=== PATIENT | female | born 1970 | race Caucasian/White ===

== ENCOUNTER 2018-10-08 00:05 | Observation (INO) | payer SELFPAY ==
[2018-10-08] MEDS ORDERED: ASPIRIN 81 MG TABLET, CHEWABLE PO ONE (00:21)
--- NOTE | 2018-10-08 00:35 | ER Document Report ---
ED General - General Chief Complaint: Chest Pain Stated Complaint: CHEST PAINS, SHORT OF BREATH Time Seen by Provider: 10/08/18 00:25 Notes: 39-year-old female with a history of smoking visiting her grandbaby from [facility] presents with pain in her right shoulder and lower chest bilaterally right greater than left worse with deep breathing. This all started when she woke up at 7 AM but is worsened throughout the day where she cannot get a deep breath in. She denies changes in her chronic cough hemoptysis or leg swelling. She denies a cardiac history but does take blood pressure medication. She denies fever chills. TRAVEL OUTSIDE OF THE [place] IN LAST 30 DAYS: No - Related Data Allergies/Adverse Reactions: No Known Allergies Allergy (Unverified 10/08/18 00:48) Past Medical History - Social History Smoking Status: Current Every Day Smoker Smoking Education Provided: Yes - The patient ED visit today was directly related to their abuse of tobacco. Family History: None Review of Systems - Review of Systems Notes: REVIEW OF SYSTEMS GEN: Denies fever, chills, weight loss ENT: Denies sore throat, nasal discharge, ear pain EYES: Denies blurry vision, eye pain, discharge CV: Denies chest pain, palpitations, edema RESP: Cough shortness of breath GI: Denies abdominal pain, nausea, vomiting, diarrhea MSK: Denies joint pain/swelling, edema, SKIN: Denies rash, skin lesions LYMPH: Denies swollen glands/lymph nodes NEURO: Denies headache, focal weakness or numbness, dizziness PSYCH: Denies depression, suicidal or homicidal ideation PHYSICAL EXAMINATION General: No acute distress, well-nourished Head: Atraumatic, normocephalic ENT: Mouth normal, oropharynx moist, no exudates or tonsillar enlargement Eyes: Conjunctiva normal, pupils equal, lids normal Neck: No JVD, supple, no guarding CVS: , regular rhythm, no murmurs Resp: No resp distress, equal and normal breath sounds bilaterally GI: Nondistended, soft, no tenderness to palpation, no rebound or guarding Ext: No deformities, no edema, normal range of motion in upper and lower ext Back: No CVA or midline TTP Skin: No rash, warm Lymphatic: No lymphadeopathy noted Neuro: Awake, alert. Face symmetric. GCS 15. Physical Exam - Vital signs Vitals: Resp 27 H 11/07/18 00:20 Course - Re-evaluation Re-evalutation: 10/08/18 02:42 She presents with bilateral costal pleuritic chest pain and shortness of breath. She has multiple risk factors for pulmonary embolus. The pain is atypical for acute coronary syndrome and she has no history of heart disease. She also has a history of pancreatitis, which I found out much later. Initially repeat her EKG because I wondered if there was some mild ST elevation in the inferior leads, however on repeat this does not seem to be present in terms of criteria for STEMI and there is no reciprocal change. Patient underwent a complete workup including x-ray labs troponin and a CT for pulmonary embolus. These were all negative. She did receive nitro which helped her some, then got slightly nauseous and received fentanyl and Zofran. I reassessed her after this at 2:40 AM in the presence of her daughter, nurse, and she felt slightly better. At this time I do not believe she has an abdominal problem because a repeat abdominal exam is totally normal. I will do one more EKG to make sure it is not changing, and plan to admit for rule out ACS. She is from [place] and so will need to be stressed before discharge. 10/08/18 03:11 Patient negative. Discussed with hospitalist. He raised the possibility of pericarditis. In looking at her EKG there is some question of WI depression in some leads, and may be WI depression slightly in aVR. Patient still does not meet STEMI criteria but will be admitted to rule out acute coronary syndrome. - Vital Signs Vital signs: Temp Pulse Resp BP Pulse Ox 26 H 131/90 H 94 10/08/18 01:20 10/08/18 01:20 10/08/18 01:20 - Laboratory Result Diagrams: 10/08/18 00:42 10/08/18 00:42 Laboratory results interpreted by me: 10/08/18 00:42 MCV 98 H MCH 34.3 H RDW 14.9 H - Diagnostic Test Radiology reviewed: Image reviewed, Reports reviewed - EKG Interpretation by Me EKG shows normal: Sinus rhythm Rate: Tachycardia When compared to previous EKG there are: Previous EKG unavailable Discharge - Discharge Clinical Impression: Chest pain, unspecified Qualifiers: Chest pain type: chest pain on breathing Qualified Code(s): R07.1 - Chest pain on breathing Condition: Good Disposition: ADMITTED OBSERVATION Admitting Provider: Hospitalist Unit Admitted: Telemetry
[2018-10-08 00:53] LABS: ABSOLUTE BASOPHILS # (AUTO) 0.1 10^3/uL (0.0-0.2); ABSOLUTE EOSINOPHILS # (AUTO) 0.3 10^3/uL (0.0-0.6); ABSOLUTE LYMPHOCYTES (AUTO) 2.3 10^3/uL (0.5-4.7); ABSOLUTE MONOCYTES (AUTO) 1.2 10^3/uL (0.1-1.4); ABSOLUTE NEUT (AUTO) 6.1 10^3/uL (1.7-8.2); EOSINOPHILS % (AUTO) 2.7 % (0-6); HEMATOCRIT 42.7 % (36.0-47.0); HEMOGLOBIN 14.9 g/dL (12.0-15.5); LYMPHOCYTES % (AUTO) 23.1 % (13-45); MEAN CORPUSCULAR HEMOGLOBIN 34.3 pg (27.0-33.4); MEAN CORPUSCULAR HGB CONC 34.9 g/dL (32.0-36.0); MEAN CORPUSCULAR VOLUME 98 fl (80-97); MONOCYTES % (AUTO) 11.9 % (3-13); PLATELET COUNT 338 10^3/uL (150-450); RED BLOOD COUNT 4.35 10^6/uL (3.72-5.28); RED CELL DISTRIBUTION WIDTH 14.9 % (11.5-14.0); SEGMENTED NEUTROPHILS % (AUTO) 61.3 % (42-78); TOTAL CELLS COUNTED % (AUTO) 100 %
[2018-10-08 01:07] LABS: ALANINE AMINOTRANSFERASE 33 U/L (9-52); ALBUMIN 4.2 g/dL (3.5-5.0); ALKALINE PHOSPHATASE 93 U/L (38-126); ANION GAP 12 (5-19); ASPARTATE AMINO TRANSFERASE 31 U/L (14-36); BILIRUBIN,DIRECT 0.2 mg/dL (0.0-0.4); BILIRUBIN,TOTAL 0.4 mg/dL (0.2-1.3); BLOOD UREA NITROGEN 16 mg/dL (7-20); CALCIUM 9.7 mg/dL (8.4-10.2); CARBON DIOXIDE 23 mmol/L (22-30); CHLORIDE 105 mmol/L (98-107); GLUCOSE 104 mg/dL (75-110); POTASSIUM 4.6 mmol/L (3.6-5.0); SODIUM 140.2 mmol/L (137-145); TOTAL PROTEIN 7.6 g/dL (6.3-8.2)
[2018-10-08] MEDS: NITROGLYCERIN 0.4 MG/TAB 25 TAB/BOTTLE SL PRN ×2 (01:17→01:23)
--- NOTE | 2018-10-08 01:57 | RADIOLOGY REPORT (SQ) ---
CLINICAL HISTORY: cp COMPARISON: None. 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 Lungs are clear without consolidation, atelectasis, mass or edema. There is no pleural effusion. There is no pneumothorax. There are no acute osseous findings. IMPRESSION: Clear lungs.
[2018-10-08] MEDS ORDERED: ONDANSETRON HCL INJ/PF 4 MG/2 ML SDV IV ONE (02:17)
[2018-10-08] MEDS ORDERED: FENTANYL CITRATE INJ/PF 100 MCG/2 ML AMPUL IV ONE (02:18)
--- NOTE | 2018-10-08 02:19 | RADIOLOGY REPORT (SQ) ---
CLINICAL HISTORY: CP, tachy. smoker. COMPARISON: None. 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 MIPS reconstructions were generated. This exam was performed according to our departmental dose-optimization program, which includes automated exposure control, adjustment of the mA and/or kV according to patient size and/or use of iterative reconstruction technique. MIP images were generated. FINDINGS: Thoracic aorta is normal in course and caliber without aneurysm or dissection. Pulmonary arteries are adequately opacified without acute or chronic filling defects. The heart is normal in size. There is no pericardial effusion. Intrathoracic lymph nodes are not enlarged. There is no pleural effusion, pleural thickening or pneumothorax. Central airways are patent. There is moderate upper lung centrilobular emphysema. There are no acute abnormalities within the limited images of the upper abdomen. There are no acute osseous findings. No suspicious bony lesions. IMPRESSION: No aortic dissection or aneurysm. No pulmonary embolus. Emphysema without pneumonia.
[2018-10-08 02:46] LABS: LIPASE 107.4 U/L (23-300)
[2018-10-08] MEDS ORDERED: MAG HYDROX/AL HYDROX/SIMETH SUSP 30 ML UDCUP PO PRN (03:16)
[2018-10-08] MEDS ORDERED: NITROGLYCERIN 0.4 MG/TAB 25 TAB/BOTTLE SL PRN (03:16)
[2018-10-08] MEDS ORDERED: ONDANSETRON HCL INJ/PF 4 MG/2 ML SDV IV PRN (03:16)
[2018-10-08] MEDS ORDERED: LACTULOSE SYRUP 20 GM/30 ML UDCUP PO ONE (03:25)
[2018-10-08] MEDS ORDERED: NICOTINE 14 MG/24 HR PATCH.TD24 TD ONE (04:14)
[2018-10-08] MEDS ORDERED: NICOTINE 7 MG/24 HR PATCH.TD24 TD PRN (05:24)
--- NOTE | 2018-10-08 05:25 | PDOC H&P ---
History of Present Illness Admission Date/PCP: 10/08/18 03:20 Patient complains of: Chest pain History of Present Illness: ENRIQUE BARRETO is a 47 year old female with a past medical history of COPD and chronic bronchitis. Presenting with 18 hours of sharp left-sided chest pain 3 out of 5 intensity waxing and waning, worsened with deep breathing, alleviated by rest. She has recently traveled from [facility]. In the emergency room she has an unremarkable workup including CTA chest and she is referred to the hospitalist for admission. She denies previous episode, cardiac stress testing and is currently pain-free. Past Medical History Cardiac Medical History: Reports: Hypertension Pulmonary Medical History: Reports: Bronchitis, Chronic Obstructive Pulmonary Disease (COPD) Social History Information Source: Patient Lives with: Family Smoking Status: Current Every Day Smoker Frequency of Alcohol Use: None Drugs: None - Advance Directive Resuscitation Status: Full Code Family History Family History: Hypertension Parental Family History Reviewed: Yes Children Family History Reviewed: Yes Sibling(s) Family History Reviewed.: Yes Medication/Allergy Allergies/Adverse Reactions: No Known Allergies Allergy (Unverified 10/08/18 00:48) Review of Systems Constitutional: ABSENT: chills, fever(s), headache(s), weight gain, weight loss Eyes: ABSENT: visual disturbances Ears: ABSENT: hearing changes Cardiovascular: ABSENT: chest pain, dyspnea on exertion, edema, orthropnea, palpitations Respiratory: ABSENT: cough, hemoptysis Gastrointestinal: ABSENT: abdominal pain, constipation, diarrhea, hematemesis, hematochezia, nausea, vomiting Genitourinary: ABSENT: dysuria, hematuria Musculoskeletal: ABSENT: joint swelling Integumentary: ABSENT: rash, wounds Neurological: ABSENT: abnormal gait, abnormal speech, confusion, dizziness, focal weakness, syncope Psychiatric: ABSENT: anxiety, depression, homidical ideation, suicidal ideation Endocrine: ABSENT: cold intolerance, heat intolerance, polydipsia, polyuria Hematologic/Lymphatic: ABSENT: easy bleeding, easy bruising Physical Exam Vital Signs: Temp Pulse Resp BP Pulse Ox 22 H 123/85 98 10/08/18 04:35 10/08/18 03:00 10/08/18 04:54 Intake & Output 10/06/18 10/07/18 10/08/18 11:59 11:59 11:59 Weight 58.7 kg General appearance: PRESENT: no acute distress, well-developed, well-nourished Head exam: PRESENT: atraumatic, normocephalic Eye exam: PRESENT: conjunctiva pink, EOMI, PERRLA. ABSENT: scleral icterus Ear exam: PRESENT: normal external ear exam Mouth exam: PRESENT: moist, tongue midline Neck exam: ABSENT: carotid bruit, JVD, lymphadenopathy, thyromegaly Respiratory exam: PRESENT: clear to auscultation mirian. ABSENT: rales, rhonchi, wheezes Cardiovascular exam: PRESENT: RRR. ABSENT: diastolic murmur, rubs, systolic murmur Pulses: PRESENT: normal dorsalis pedis pul Vascular exam: PRESENT: normal capillary refill GI/Abdominal exam: PRESENT: normal bowel sounds, soft. ABSENT: distended, guarding, mass, organolmegaly, rebound, tenderness Rectal exam: PRESENT: deferred Extremities exam: PRESENT: full ROM. ABSENT: calf tenderness, clubbing, pedal edema Neurological exam: PRESENT: alert, awake, oriented to person, oriented to place , oriented to time, oriented to situation, CN II-XII grossly intact. ABSENT: motor sensory deficit Psychiatric exam: PRESENT: appropriate affect, normal mood. ABSENT: homicidal ideation, suicidal ideation Skin exam: PRESENT: dry, intact, warm. ABSENT: cyanosis, rash Results Impressions: Chest X-Ray 10/08/18 00:21 IMPRESSION: Clear lungs. Chest/Abdomen CTA 10/08/18 00:32 IMPRESSION: No aortic dissection or aneurysm. No pulmonary embolus. Emphysema without pneumonia. Assessment & Plan - Diagnosis (1) Chest pain, unspecified Qualifiers: Chest pain type: chest pain on breathing Qualified Code(s): R07.1 - Chest pain on breathing; R07.81 - Pleurodynia Is this a current diagnosis for this admission?: Yes Plan: Atypical chest pain though the patient's pain is atypical there are multiple risk factors for coronary artery disease and subsequently will observe and evaluation of acute coronary syndrome versus coronary artery disease with anginal equivalents. Cardiac monitoring blood pressure Q6 hours ,TSH, lipid profile, serial cardiac enzymes and cardiac stress test (2) Hypertension Is this a current diagnosis for this admission?: Yes Plan: Outpatient regiment with as needed MAYI inhibitor (3) Tobacco abuse Is this a current diagnosis for this admission?: Yes Plan: Tobacco Dependence patient received tobacco cessation counseling and offered nicotine replacement options - Time Time Spent: 30 to 50 Minutes
[2018-10-08] MEDS ORDERED: HEPARIN SOD (PORCINE) 5,000 UNIT/ML 1 ML SYRINGE SUBCUT SCH (06:00)
[2018-10-08 06:50] LABS: CHOLESTEROL 230.46 mg/dL (0-200); TRIGLYCERIDES 86 mg/dL (<150)
[2018-10-08 07:00] LABS: DIRECT LDL 161 mg/dL (<100)
[2018-10-08 07:02] LABS: CREATINE KINASE MB 0.83 ng/mL (<4.55)
[2018-10-08 07:09] LABS: TROPONIN I < 0.012 ng/mL
--- NOTE | 2018-10-08 07:43 | EKG REPORT ---
SEVERITY:- BORDERLINE ECG - SINUS TACHYCARDIA PROBABLE LEFT ATRIAL ABNORMALITY BORDERLINE LEFT AXIS DEVIATION ST ELEV, PROBABLE NORMAL EARLY REPOL PATTERN : Confirmed by: Seven Coburn MD 08-Oct-2018 07:42:59
[2018-10-08 08:01] VITALS: BP 114/75
--- NOTE | 2018-10-08 18:54 | PDOC DISCHARGE SUMMARY ---
General - Admit/Disc Date/PCP Admission Date/Primary Care Provider: 10/08/18 03:20 Discharge Date: 10/08/18 - Discharge Diagnosis (1) Chest pain, unspecified Is this a current diagnosis for this admission?: Yes (2) Hypertension Is this a current diagnosis for this admission?: Yes (3) Tobacco abuse Is this a current diagnosis for this admission?: Yes - Additional Information Resuscitation Status: Full Code Home Medications: Calcium Carbonate [Tums Chewable 500 mg Tab.chew] 500 mg PO PRN PRN MDD USES VERY FREQUENTLY THRU DAY 10/08/18 Dicyclomine HCl 20 mg PO BID PRN 10/08/18 Labetalol HCl 100 mg PO BID 10/08/18 History of Present Illness History of Present Illness: ENRIQUE BARRETO is a 47 year old female admitted overnight with chest pain. Patient apparently complained of chest pain when she went for stress Cardiolite. Patient was brought back to the floor and cardiology recommendation was recommended, but patient stated she was doing better, no more chest pain, and that she did not want to be in the hospital anymore. States she has been told before it has to do with her stomach. She is encouraged to at least wait for cardiology evaluation but she refused. She signed out AGAINST MEDICAL ADVICE. Hospital Course Hospital Course: As above. Patient signed out AGAINST MEDICAL ADVICE. Physical Exam Vital Signs: Temp Pulse Resp BP Pulse Ox 97.8 F 76 18 114/75 96 10/08/18 07:43 10/08/18 07:43 10/08/18 07:43 10/08/18 07:43 10/08/18 08:34 Intake & Output 10/07/18 10/08/18 10/09/18 06:59 06:59 06:59 Intake Total 0 Output Total 0 Balance 0 Weight 57.7 kg GEN: NAD, well-developed, well-nourished CV: RRR, NL S1S2 LUNGS: CTA bilaterally ABDOMEN Soft, NT, +BS EXTERMITIES: No e/c/c NEURO: Alert, oriented x3, nonfocal. Reports understanding she may have a heart attack or without appropriate evaluation. Results Laboratory Results: 10/08/18 06:30 Triglycerides 86 Cholesterol 230.46 H LDL Cholesterol Direct 161 H VLDL Cholesterol 17.0 HDL Cholesterol 60 10/08/18 06:30 CK-MB (CK-2) 0.83 Troponin I < 0.012 Impressions: Chest X-Ray 10/08/18 00:21 IMPRESSION: Clear lungs. Chest/Abdomen CTA 10/08/18 00:32 IMPRESSION: No aortic dissection or aneurysm. No pulmonary embolus. Emphysema without pneumonia. Qualifiers - * PATIENT BEING DISCHARGED WITH ANY OF THE FOLLOWING DIAGNOSIS: No
--- NOTE | 2018-10-08 20:20 | PDOC CONSULTATION ---
Consultation Consult Date: 10/08/18 Attending physician:: CARLOS ENRIQUE GRAF Consult reason:: Chest pain History of Present Illness Admission Date/PCP: 10/08/18 03:20 Patient complains of: Chest pain History of Present Illness: ENRIQUE BARRETO is a 47 year old female with a past medical history of COPD and chronic bronchitis. Presenting with 18 hours of sharp left-sided chest pain 3 out of 5 intensity waxing and waning, worsened with deep breathing, alleviated by rest. She has recently traveled from [facility]. In the emergency room she has an unremarkable workup including CTA chest and she is referred to the hospitalist for admission. She denies previous episode, cardiac stress testing and is currently pain-free. I was consulted on this patient. Patient was scheduled for a stress test but in the stress lab, patient complained of continuous chest pain and it was felt that further evaluation is needed before proceeding with stress test therefore I was consulted. I did see the patient on the floor. She complains of sharp chest pains and difficulty with taking a deep breath. Patient does give history of hypertension and history of smoking. She however denied any prior history of heart problem. Patient also at that time desired to be discharged otherwise she was going to sign out. It seems patient wanted to smoke and go out to smoke as well as see her grandson. It was felt that patient chest pain was atypical. Past Medical History Cardiac Medical History: Reports: Hypertension Pulmonary Medical History: Reports: Bronchitis, Chronic Obstructive Pulmonary Disease (COPD) Social History Information Source: Patient Lives with: Family Smoking Status: Current Every Day Smoker Cigarettes Packs Per Day: 2 Last Time Smoked: 10-08-2018 Frequency of Alcohol Use: Occasional Hx Recreational Drug Use: No Drugs: None Hx Prescription Drug Abuse: No - Advance Directive Resuscitation Status: Full Code Family History Family History: Hypertension Parental Family History Reviewed: Yes Children Family History Reviewed: Yes Sibling(s) Family History Reviewed.: Yes Medication/Allergy Home Medications: Calcium Carbonate [Tums Chewable 500 mg Tab.chew] 500 mg PO PRN PRN MDD USES VERY FREQUENTLY THRU DAY 10/08/18 Dicyclomine HCl 20 mg PO BID PRN 10/08/18 Labetalol HCl 100 mg PO BID 10/08/18 Allergies/Adverse Reactions: No Known Allergies Allergy (Unverified 10/08/18 00:48) Review of Systems Review of Systems: Please see history of present illness and past medical history as wall. Constitutional: No fever or chills reported. Head : No recent chronic headaches, recent head injury. Eyes: No recent eye pain, diplopia, redness, discharge, acute visual changes. Ears: No recent chronic ear pain, acute hearing loss, ear discharge. Oral cavity: No recent ulcerations, bleeding, oral cavity discomfort. Neck: No recent acute neck pain reported. Hematologic: No recent easy bruising or bleeding. Lymphatic: No recent lymph node enlargement reported. Cardiovascular system review: See history of present illness. Respiratory system review: No hemoptysis or blood clots in the lungs reported. Mild Shortness of breath on exertion Gastrointestinal system review: Negative for any recent acute hematemesis, melena. Genitourinary system review: No recent acute or chronic hematuria, flank pain, UTI etc. reported. Skin system review: Negative for any recent abnormal bruising, no rash, no pruritus reported. Neurologic: No prior history of strokes, mini strokes, seizure disorder. Psychologic: No history of major psychosis or major depression reported. Musculoskeletal: Minor aches and pains reported. No acute joint swelling reported. Endocrine: No recent polyuria, polydipsia, recent heat or cold intolerance. Physical Exam Vital Signs: Temp Pulse Resp BP Pulse Ox 97.8 F 76 18 114/75 96 10/08/18 07:43 10/08/18 07:43 10/08/18 07:43 10/08/18 07:43 10/08/18 08:34 Intake & Output 10/07/18 10/08/18 10/09/18 06:59 06:59 06:59 Intake Total 0 Output Total 0 Balance 0 Weight 57.7 kg Exam: GENERAL: well-nourished and in no acute distress. Alert and oriented x3 HEAD: Atraumatic, normocephalic. EYES: SAVANNAH, sclera anicteric, conjunctiva are normal. ENT: Moist mucous membranes. No oral ulcerations or bleeding gums noted. No obvious ear, nose or throat abnormalities noted. NECK: supple without lymphadenopathy. Trachea is central. No cervical or axillary lymphadenopathy noted. Carotids are 2+, JVD WNL LUNGS: Breath sounds clear bilaterally. No wheezes rales or rhonchi noted. No significant dullness noted on percussion. CHEST: Palpation of the chest wall shows significant chest wall tenderness. 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 ABDOMEN: Soft, no significant tenderness appreciated, normoactive bowel sounds. No guarding, no rebound. No rigidity noted . No masses appreciated. EXTREMITIES: Pedal pulses are 1-2+, no calf tenderness noted. No clubbing or cyanosis. negative pedal edema noted NEUROLOGICAL: Focused neurological exam showed no significant neurologic deficit. Normal speech, no focal weakness appreciated. PSYCH: Normal mood, normal affect. Judgment and insight within normal limits. SKIN: No significant ecchymosis, skin is noted to be warm. MUSCULOSKELETAL EXAM: No significant acute joint swelling noted. Results Laboratory Results: 10/08/18 06:30 Triglycerides 86 Cholesterol 230.46 H LDL Cholesterol Direct 161 H VLDL Cholesterol 17.0 HDL Cholesterol 60 10/08/18 06:30 CK-MB (CK-2) 0.83 Troponin I < 0.012 EKG Comments: Sinus rhythm, borderline Q waves noted inferiorly. Impressions: Chest X-Ray 10/08/18 00:21 IMPRESSION: Clear lungs. Chest/Abdomen CTA 10/08/18 00:32 IMPRESSION: No aortic dissection or aneurysm. No pulmonary embolus. Emphysema without pneumonia. Assessment & Plan - Diagnosis (1) Chest pain, unspecified Qualifiers: Chest pain type: chest pain on breathing Qualified Code(s): R07.1 - Chest pain on breathing; R07.81 - Pleurodynia Is this a current diagnosis for this admission?: Yes (2) Hypertension Is this a current diagnosis for this admission?: Yes (3) Tobacco abuse Is this a current diagnosis for this admission?: Yes (4) Hyperlipidemia Qualifiers: Hyperlipidemia type: unspecified Qualified Code(s): E78.5 - Hyperlipidemia , unspecified Is this a current diagnosis for this admission?: Yes - Notes Notes: Chest pain: Seems atypical by history. Cardiac chest CT was negative for pulmonary embolism. No coronary calcium was noted. Visualized portion of the coronaries did not seem to have significant stenosis. Patient EKG does however have borderline Q waves. Patient was advised to his stay in hospital and complete the stress test but she declines to pursue it. Hypertension: Patient would benefit from good blood pressure control. 135/85 will be optimal. Tobacco abuse: Patient has been advised to quit smoking. Dyslipidemia: LDL level came back high. Patient recommended to go on statins. Patient wanted to be discharged. Have given patient my card. She could follow- up in the office. - Time Time Spent: 30 to 50 Minutes - CODE STATUS was discussed, patient remains full code. Surrogate decision-maker unchanged. Multiple medical problems were addressed. More than 50% of the time spent coordinating care, discussing management plans with involved caregivers. Management plans discussed with involved personnels. Medical decision making was of moderate to high complexity , patient's has multiple comorbidities. Medications reviewed and adjusted accordingly: Yes
== END 2018-10-08 11:42 | disposition left against medical advice (07) ==
LOC: ER 00:05 → EH 03:20 → 3W 05:42
PROVIDERS: ADMIT Internal Medicine; ATTEND Internal Medicine
DX: R07.9 Chest pain, unspecified (principal); R07.81 Pleurodynia; I10 Essential (primary) hypertension; E78.5 Hyperlipidemia, unspecified; Z53.21 Procedure and treatment not carried out due to patient leaving prior to being seen by health care provider; F17.210 Nicotine dependence, cigarettes, uncomplicated; R05 Cough; R00.0 Tachycardia, unspecified; J43.9 Emphysema, unspecified; Z82.49 Family history of ischemic heart disease and other diseases of the circulatory system; Z87.19 Personal history of other diseases of the digestive system
CPT/HCPCS: 93005; 99285; 96374; 96375; 36415; 82553; 83690; 85025; 85652; 80053; 84484; 80061; 71045; 78451; 71275; 94799; 93010; G0378 ×2; A9500; J1644; J3010; J3490; J2405; Q9969; 82550